=== PATIENT | female | born 1960 | race Caucasian/White ===

== ENCOUNTER 2016-09-27 07:15 | Day surgery (SDC) | payer OTHER ==
[~2016-09-27] VITALS: Ht 162.6 cm; Wt 94.8 kg
[~2016-09-27 07:15] MED LIST: ASPI81EC98 PO; BENA10TA16 PO; GABA300C PO; GLIP10TE PO; METF850T PO; MSCON15 PO; [UNRECOGNIZED DRUG - REMARK] PO
[2016-09-27 09:12] LABS: BASOPHILS # (AUTO) 0.1 K/uL (0.00-0.22); BASOPHILS % (AUTO) 2.1 % (0.0-2.0); EOSINOPHILS # (AUTO) 0.1 K/uL (0-0.4); EOSINOPHILS % (AUTO) 1.4 % (0.0-4.0); HEMATOCRIT 43.7 % (36-48); HEMOGLOBIN 14.6 g/dL (12.0-16.0); LYMPHOCYTES # (AUTO) 1.5 K/uL (2.5-16.5); LYMPHOCYTES % (AUTO) 36.2 % (20.5-51.1); MEAN CORPUSCULAR HEMOGLOBIN 31 pg (27-31); MEAN CORPUSCULAR HGB CONC 33 g/dL (33-37); MEAN CORPUSCULAR VOLUME 93 fL (80-94); MONOCYTES # (AUTO) 0.3 K/uL (0.8-1.0); MONOCYTES % (AUTO) 7.7 % (1.7-9.3); NEUTROPHILS % (AUTO) 52.6 % (42.2-75.2); PLATELET COUNT (AUTO) 118 K/uL (140-450); RED BLOOD CELL COUNT(AUTO) 4.72 MIL/uL (4.20-5.40); RED CELL DISTRIBUTION WIDTH 11.7 % (11.6-13.7)
[2016-09-27] MEDS ORDERED: LIDOCAINE 2% 1000 MG/50 ML VIAL INJ ONE (09:19)
[2016-09-27 09:27] LABS: INR 1.1 (0.8-1.2); PROTHROMBIN TIME 10.8 secs (10.8-13.4)
[2016-09-27] MEDS ORDERED: fentaNYL 0.05 MG/ML VIAL ONE ×2 (09:45→10:28)
== END 2016-09-27 11:00 | disposition home health service (06) ==
LOC: MMU 07:15 → MDS 07:15
PROVIDERS: ATTEND Internal Medicine Gastroenterology
DX: B19.20 Unspecified viral hepatitis C without hepatic coma (principal); I10 Essential (primary) hypertension; Z79.82 Long term (current) use of aspirin; E11.9 Type 2 diabetes mellitus without complications; E66.9 Obesity, unspecified
CPT/HCPCS: 36415; 76942; 82948; 85025; 85610; 85730; J2001; J3010; Q0092

== ENCOUNTER 2016-09-30 22:30 | Emergency (ER) | payer OTHER ==
[~2016-09-30] VITALS: Ht 160 cm; Wt 94.8 kg
[2016-09-30 22:45] VITALS: BP 122/67
--- NOTE | 2016-10-01 00:43 | NUR ---
PATIENT LEFT WITHOUT BEING SEEN BY DR. LOPEZ. NO FURTHER CARE PROVIDED FOR PATIENT.
== END 2016-10-01 00:43 | disposition left against medical advice (07) ==
LOC: MED 22:30
DX: R10.9 Unspecified abdominal pain (principal); Z53.21 Procedure and treatment not carried out due to patient leaving prior to being seen by health care provider

== ENCOUNTER 2017-03-21 11:22 | Emergency (ER) | payer OTHER ==
[~2017-03-21] VITALS: Ht 160 cm; Wt 96.3 kg
[~2017-03-21 11:22] MED LIST changes: +BENA10TA10 PO; -BENA10TA16 PO
[2017-03-21 11:28] VITALS: BP 113/68
--- NOTE | 2017-03-21 14:00 | NUR ---
NO ANSWER IN ER LOBBY
== END 2017-03-21 14:00 | disposition left against medical advice (07) ==
LOC: MED 11:22
DX: H92.02 Otalgia, left ear (principal); Z53.21 Procedure and treatment not carried out due to patient leaving prior to being seen by health care provider
CPT/HCPCS: 82948

== ENCOUNTER 2017-07-24 13:54 | Emergency (ER) | payer OTHER ==
[~2017-07-24] VITALS: Ht 160 cm; Wt 92.6 kg
[2017-07-24 13:59] VITALS: BP 132/73
--- NOTE | 2017-07-24 14:05 | NUR ---
PT AA&OX4 WITH EVEN AND STEADY GAIT AT THIS TIME; PT TO LOBBY AWAITING OPEN BED.
--- NOTE | 2017-07-24 14:33 | NUR ---
PT AMBULATED TO ER CHAIR B
--- NOTE | 2017-07-24 14:35 | NUR ---
56F BIB SELF C/O NECK PAIN D/T BL SWOLLEN GLANDS X 1 WEEK. PT STATES HAS RASH TO BL HIPS AND LUMP ON BACK. HX: DM, HTN,HEP C.DENIES N/V/D; SKIN IS PINK/WARM/DRY; AAOX4 WITH EVEN AND STEADY GAIT; LUNGS CLEAR BL;PATIENT STATES PAIN OF 9/10 AT THIS TIME; PATIENT POSITIONED FOR COMFORT; HOB ELEVATED; BEDRAILS UP X2; BED DOWN. ER MD MADE AWARE OF PT STATUS.
--- NOTE | 2017-07-24 15:20 | NUR ---
Michael arthur in ED - 07/24/17 at 1522 by MED1 PATIENT ELOPED FROM FACILITY. DISCHARGE INSTRUCTIONS NOT GIVEN TO PATIENT. DR. GODWINIED.
--- NOTE | 2017-07-24 16:40 | NUR ---
Patient being evaluated by DR ASTUDILLO at bedside.
[2017-07-24 17:03] VITALS: BP 135/76
--- NOTE | 2017-07-24 17:04 | NUR ---
Patient discharged with BP 135/70. Written and verbal after care instructions given and explained. Patient alert, oriented and verbalized understanding of instructions. Ambulatory with steady gait. All questions addressed prior to discharge. ID band removed. Patient advised to follow up with PMD. Rx of NAPROSYN & DOXYCYCLINE given. Patient educated on indication of medication including possible reaction and side effects. Opportunity to ask questions provided and answered.
== END 2017-07-24 17:04 | disposition home or self-care (01) ==
LOC: MED 13:54
DX: I88.9 Nonspecific lymphadenitis, unspecified (principal); D17.9 Benign lipomatous neoplasm, unspecified; J32.9 Chronic sinusitis, unspecified; L30.9 Dermatitis, unspecified; E11.9 Type 2 diabetes mellitus without complications
CPT/HCPCS: 82948; 99283

== ENCOUNTER 2018-10-07 20:55 | Emergency (ER) | payer OTHER ==
[~2018-10-07] VITALS: Ht 160 cm; Wt 97.5 kg
[~2018-10-07 20:55] MED LIST changes: -BENA10TA10 PO; +BENA10TA17 PO
[2018-10-07 21:12] VITALS: BP_SYST 90
--- NOTE | 2018-10-07 21:15 | NUR ---
TO LOBBY A/W BED, AMBULATORY
--- NOTE | 2018-10-07 22:50 | NUR ---
PT AMBULATED TO BED 10
--- NOTE | 2018-10-07 22:51 | NUR ---
57 Y/O F W/C/O RASH ON CHEST, BACK, UPPER AND LOWER EXTREMITIES. PT DENIES N/V/D; AAOX4, PERRL, WITH EVEN AND STEADY GAIT; LUNGS CLEAR BL, BREATHING UNLABORED; HR EVEN AND REGULAR, BL PERIPHERAL PULSES PRESENT; PT DENIES ANY FEVER, CP, SOB, OR COUGH AT THIS TIME; PT STATES 8/10 PAIN AT THIS TIME; VSS; PATIENT POSITIONED FOR COMFORT; HOB ELEVATED; BEDRAILS UP X2; BED DOWN.
--- NOTE | 2018-10-07 23:41 | NUR ---
Dr. Varela evaluating patient at bedside.
[2018-10-07] MEDS ORDERED: LEVOFLOXACIN 500 MG TAB PO ONE (23:45)
[2018-10-08 00:23] VITALS: BP 118/95
--- NOTE | 2018-10-08 01:05 | NUR ---
Patient discharged with v/s stable. Written and verbal after care instructions given and explained. Patient alert, oriented and verbalized understanding of instructions. Ambulatory with steady gait. All questions addressed prior to discharge. ID band removed. Patient advised to follow up with PMD. Rx of BENADRYL,CIPRO, HYDROCORTISONE CREAM given. Patient educated on indication of medication including possible reaction and side effects. Opportunity to ask questions provided and answered.
== END 2018-10-08 00:23 | disposition home or self-care (01) ==
LOC: MED 20:55
DX: N39.0 Urinary tract infection, site not specified (principal); L98.9 Disorder of the skin and subcutaneous tissue, unspecified; R21 Rash and other nonspecific skin eruption; E11.9 Type 2 diabetes mellitus without complications; I10 Essential (primary) hypertension; F17.210 Nicotine dependence, cigarettes, uncomplicated; Z79.82 Long term (current) use of aspirin; Z79.84 Long term (current) use of oral hypoglycemic drugs; Z79.899 Other long term (current) drug therapy; Z79.891 Long term (current) use of opiate analgesic; Z71.6 Tobacco abuse counseling
CPT/HCPCS: 99283

== ENCOUNTER 2019-05-26 22:06 | Emergency (ER) | payer OTHER ==
[~2019-05-26] VITALS: Ht 160 cm; Wt 98.0 kg
[2019-05-26 22:10] VITALS: BP 143/54
--- NOTE | 2019-05-26 22:22 | NUR ---
AMBULATED TO BED 06 WITH STEADY GAIT IN UPRIGHT POSITION. 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 JANUSZ ROQUE AT BEDSIDE FOR REPORT. MADE DR. PEREZ OF STATUS. RECEIVED VERBAL ORDER FOR EKG.
--- NOTE | 2019-05-26 22:22 | NUR ---
58 Y/O FEMALE C/O RAPID HEART RATE AND CEHST PAIN X 1HR. RATES PAIN 8/10 AND DESCRIBES IT BURNING AND ACHING. CHEST PAIN RADIATES TO LEFT SHOULDER AND ARM. HEART SOUNDS S1S2 PRESENT. LUNG SOUNDS CLEAR ALL THROUGHOUT. VSS. a & O X4. NO EDEMA PRESENT. CAP REFILL < 3. 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
[2019-05-26] MEDS ORDERED: KETOROLAC 60 MG/2 ML VIAL IM ONE (22:30)
--- NOTE | 2019-05-26 22:30 | NUR ---
EKG PERFORMED AT BEDSIDE
--- NOTE | 2019-05-26 22:57 | NUR ---
AT BEDSIDE TO ISMAEL HERNANDEZ
[2019-05-26 23:06] VITALS: BP 143/54
--- NOTE | 2019-05-26 23:07 | NUR ---
Patient discharged with v/s stable. Written and verbal after care instructions given and explained. Patient verbalized understanding. Ambulatory with steady gait. All questions addressed prior to discharge. Advised to follow up with PMD.
== END 2019-05-26 23:07 | disposition home or self-care (01) ==
LOC: MED 22:06
DX: R00.2 Palpitations (principal); E11.9 Type 2 diabetes mellitus without complications; I10 Essential (primary) hypertension; F17.210 Nicotine dependence, cigarettes, uncomplicated; Z79.899 Other long term (current) drug therapy; Z79.82 Long term (current) use of aspirin; Z79.84 Long term (current) use of oral hypoglycemic drugs
CPT/HCPCS: 93005; 96372; 99283; J1885

== ENCOUNTER 2020-01-19 13:48 | Emergency (ER) | payer OTHER ==
[~2020-01-19] VITALS: Ht 160 cm; Wt 96.6 kg
[~2020-01-19 13:48] MED LIST changes: -BENA10TA17 PO; +BENA10TA60 PO
[2020-01-19 14:00] VITALS: BP 111/71
--- NOTE | 2020-01-19 14:06 | NUR ---
59 Y/O FEMALE C/O LEFT ZIEGLER PAIN X1 WEEK. INFLAMED VERICOSE VEINS NOTED ON LEFT ZIEGLER. PT STATES SHE HAS HX OF SUPERFICIAL BLOOD CLOTS ON LEFT ZIEGLER. SKIN INTACT. ROM+, CMS+. PT AMBULATORY WITH STEADY GAIT. PT STATES SHE IS TAKING NORCO, GABAPENTIN FOR PAIN, BUT PAIN LEVEL STILL GETS TO 9/10. PMH: DM, HTN
--- NOTE | 2020-01-19 14:30 | NUR ---
ULTRASOUND AT BEDSIDE
[2020-01-19 15:27] VITALS: BP 111/71
== END 2020-01-19 15:28 | disposition home or self-care (01) ==
LOC: MED 13:48
DX: I83.812 Varicose veins of left lower extremity with pain (principal); E11.9 Type 2 diabetes mellitus without complications; I10 Essential (primary) hypertension; Z79.84 Long term (current) use of oral hypoglycemic drugs; Z79.82 Long term (current) use of aspirin; Z79.899 Other long term (current) drug therapy
CPT/HCPCS: 93971; 99284; Q0092

== ENCOUNTER 2021-05-17 12:15 | Emergency (ER) | payer OTHER ==
[~2021-05-17] VITALS: Ht 160 cm; Wt 93.4 kg
[2021-05-17 12:19] VITALS: BP 154/80
--- NOTE | 2021-05-17 12:55 | NUR ---
C/O GENERALIZED WEAKNESS, 8/10 HEADACHE, LOWER ABDOMINAL PAIN , URINARY FREQUENCY X 3 WEEKS. BLOOD SUGAR 173 AT THIS TIME. PMH: HTN, DM, HLD
--- NOTE | 2021-05-17 13:21 | NUR ---
PT AMBULATED TO ER BED 2 WITH A STEADY GAIT.
[2021-05-17 13:22] LABS: BASOPHILS % (AUTO) 0.4 % (0.0-2.0); EOSINOPHILS # (AUTO) 0.1 K/uL (0-0.4); EOSINOPHILS % (AUTO) 0.8 % (0.0-4.0); HEMATOCRIT 43.7 % (36-48); HEMOGLOBIN 15.1 g/dL (12.0-16.0); LYMPHOCYTES # (AUTO) 2.5 K/uL (2.5-16.5); LYMPHOCYTES % (AUTO) 30.8 % (20.5-51.1); MEAN CORPUSCULAR HEMOGLOBIN 31 pg (27-31); MEAN CORPUSCULAR HGB CONC 35 g/dL (33-37); MEAN CORPUSCULAR VOLUME 89.9 fL (80-94); MONOCYTES # (AUTO) 0.5 K/uL (0.8-1.0); MONOCYTES % (AUTO) 6.1 % (1.7-9.3); NEUTROPHILS % (AUTO) 61.9 % (42.2-75.2); PLATELET COUNT (AUTO) 201 K/uL (140-450); RED BLOOD CELL COUNT(AUTO) 4.86 MIL/uL (4.20-5.40); RED CELL DISTRIBUTION WIDTH 12.5 % (11.6-13.7); WHITE BLOOD COUNT (AUTO) 8.2 K/uL (4.8-10.8)
[2021-05-17 13:36] LABS: ANION GAP 13.5 (8-16); CARBON DIOXIDE 30.8 mmol/L (21-32); CREATININE 0.8 mg/dL (0.6-1.3); POTASSIUM 4.3 mmol/L (3.5-5.1)
[2021-05-17 13:37] LABS: APPEARANCE,URINE CLEAR (CLEAR); BILIRUBIN,URINE NEGATIVE (NEGATIVE); BLOOD, URINE NEGATIVE (NEGATIVE); COLOR,URINE YELLOW (YELLOW); LEUKOCYTE ESTERASE ,URINE NEGATIVE (NEGATIVE); NITRITE, URINE NEGATIVE (NEGATIVE); PH,URINE 7.5 (5.0-9.0); UGLUCOSE NEGATIVE (NEGATIVE)
--- NOTE | 2021-05-17 13:41 | NUR ---
60 Y FEMALE FROM HOME WITH C/O GENERAL WEAKNESS, HEADACHE, BLURRED VISION, POLYDIPSIA, POLYURIA, AND OVERALL FATIGUE. PT DENEIS ANY CHEST PAIN, SOB, N/V, FEVER/CHILLS AT THIS TIME. PT STATED SHE HAS HAD THESE SYMPTOMS X6 WEEKS NOW. PT STATED HER BLOOD SUGAR HAS BEEN IN THE 200'S RECENTLY AND ADMITS TO TAKING 5 METFORMIN LAST NIGHT. CURRENT BLOOD SUGAR 173 AT THIS TIME. PMH: HTN, DM, HLD NKA
[2021-05-17] MEDS ORDERED: METF-350 PO (14:11)
[2021-05-17] MEDS ORDERED: PYR100 PO (14:11)
--- NOTE | 2021-05-17 14:18 | NUR ---
Patient discharged with v/s stable. Written and verbal after care instructions given and explained. Patient alert, oriented and verbalized understanding of instructions. Ambulatory with steady gait. All questions addressed prior to discharge. ID band removed. Patient advised to follow up with PMD. Rx of METFORMIN AND PYRIDIUM given. Patient educated on indication of medication including possible reaction and side effects. Opportunity to ask questions provided and answered.
[2021-05-17 14:19] VITALS: BP 111/66
== END 2021-05-17 14:18 | disposition home or self-care (01) ==
LOC: MED 12:15
DX: E11.65 Type 2 diabetes mellitus with hyperglycemia (principal); R42 Dizziness and giddiness; R51.9 Headache, unspecified; I10 Essential (primary) hypertension; E78.5 Hyperlipidemia, unspecified; F17.200 Nicotine dependence, unspecified, uncomplicated; Z79.84 Long term (current) use of oral hypoglycemic drugs; Z79.899 Other long term (current) drug therapy; Z79.82 Long term (current) use of aspirin
CPT/HCPCS: 36415; 80048; 81003; 85025; 99283

== ENCOUNTER 2021-07-23 11:28 | Emergency (ER) | payer OTHER ==
[~2021-07-23] VITALS: Ht 160 cm; Wt 91.2 kg
[~2021-07-23 11:28] MED LIST changes: +METF-350 PO; -METF850T PO; +PYR100 PO
[2021-07-23 11:36] VITALS: BP 137/87
--- NOTE | 2021-07-23 11:38 | NUR ---
Patient ambulated to bed 12 with steady/even gait
--- NOTE | 2021-07-23 11:44 | NUR ---
60 Y/O F C/O LT EYE PAIN SINCE FRIDAY. PT REPORTED PUTTING ON FALSE EYELASHES WITH "OLD GLUE" PT STATES SHE ATTEMPTED TO TAKE LASHES OFF AND NOW IS REPORTING PAIN 7/10 AND SWELLING, REDNESS NOTED. STATES BLURRY VISION. RT/LT EYES 20/25 MEDHX: HLD, HTN, DM NKA
[2021-07-23] MEDS ORDERED: KETOROLAC 60 MG/2 ML VIAL IM ONE (11:55)
[2021-07-23] MEDS ORDERED: CEPH-588 PO (11:59)
== END 2021-07-23 12:08 | disposition home or self-care (01) ==
LOC: MED 11:28
DX: L03.213 Periorbital cellulitis (principal); E11.9 Type 2 diabetes mellitus without complications; I10 Essential (primary) hypertension; Z79.899 Other long term (current) drug therapy; Z79.82 Long term (current) use of aspirin; Z79.84 Long term (current) use of oral hypoglycemic drugs; Z98.890 Other specified postprocedural states
CPT/HCPCS: 96372; 99283; J1885

== ENCOUNTER 2021-10-02 18:40 | Emergency (ER) | payer OTHER ==
[~2021-10-02] VITALS: Ht 162.6 cm; Wt 89.8 kg
[~2021-10-02 18:40] MED LIST changes: +CEPH-588 PO
[2021-10-02 18:57] VITALS: BP 134/74
== END 2021-10-02 21:52 | disposition left against medical advice (07) ==
LOC: MED 18:40
DX: R51.9 Headache, unspecified (principal); Z53.21 Procedure and treatment not carried out due to patient leaving prior to being seen by health care provider; I10 Essential (primary) hypertension; E11.9 Type 2 diabetes mellitus without complications

== ENCOUNTER 2021-10-04 11:17 | Emergency (ER) | payer OTHER ==
[~2021-10-04] VITALS: Ht 167.6 cm; Wt 91.3 kg
[2021-10-04 11:30] VITALS: BP 126/62
--- NOTE | 2021-10-04 11:42 | NUR ---
60 Y/O F BIB SELF C/O FOR R HAND POINTING FINGER PAIN 8/10 FOR ONE MONTH. PER PT SHE HAD PUSS AND BLOOD COMING OUT OF WHEN SHE SQUIZZED HER FINGER. BLOOD SUGAR IS 127 AT THIS TIME. NKA PMH: DM,HTN, FATTY LIVER
--- NOTE | 2021-10-04 12:04 | NUR ---
MARCELLE CARMONA AT BEDSIDE.
[2021-10-04] MEDS ORDERED: BACITRACIN OINT 500 UNITS/GM PKT TP ONE (12:15)
[2021-10-04] MEDS ORDERED: KETOROLAC 30 MG/ML VIAL IM ONE (12:15)
[2021-10-04] MEDS ORDERED: BACI-352 TP (12:30)
[2021-10-04 12:54] VITALS: BP 148/74
--- NOTE | 2021-10-04 12:55 | NUR ---
Patient discharged with v/s stable. Written and verbal after care instructions given and explained. Patient alert, oriented and verbalized understanding of instructions. Ambulatory with steady gait. All questions addressed prior to discharge. ID band removed. Patient advised to follow up with PMD. Rx of NEOMYCIN JOHNS/BACITRAC ZN/POLY given. Opportunity to ask questions provided and answered.
== END 2021-10-04 12:54 | disposition home or self-care (01) ==
LOC: MED 11:17
DX: L03.011 Cellulitis of right finger (principal); E11.9 Type 2 diabetes mellitus without complications; I10 Essential (primary) hypertension; Z79.899 Other long term (current) drug therapy; Z79.82 Long term (current) use of aspirin; Z79.84 Long term (current) use of oral hypoglycemic drugs
CPT/HCPCS: 82948; 96372; 99283; J1885

== ENCOUNTER 2022-03-18 16:25 | Emergency (ER) | payer OTHER ==
[~2022-03-18] VITALS: Ht 160 cm; Wt 87.5 kg
[~2022-03-18 16:25] MED LIST changes: +BACI-352 TP; -[UNRECOGNIZED DRUG - REMARK] PO
[2022-03-18 16:54] VITALS: BP 161/71
[2022-03-18] MEDS ORDERED: DOXY-690 PO (21:01)
[2022-03-18] MEDS ORDERED: ONDA-188 SL (21:01)
[2022-03-18] MEDS ORDERED: CEPH-588 PO (21:01)
[2022-03-18 21:20] VITALS: BP 161/71
--- NOTE | 2022-03-18 21:20 | NUR ---
Patient discharged with v/s stable. Written and verbal after care instructions given and explained. Patient alert, oriented and verbalized understanding of instructions. Ambulatory with steady gait. All questions addressed prior to discharge. ID band removed. Patient advised to follow up with PMD. Rx of KEFLEX, VIBRAMYCIN, ZOFRAN given. Patient educated on indication of medication including possible reaction and side effects. Opportunity to ask questions provided and answered.
== END 2022-03-18 21:20 | disposition home or self-care (01) ==
LOC: MED 16:25
DX: L03.116 Cellulitis of left lower limb (principal); R19.7 Diarrhea, unspecified; V49.88XA Car occupant (driver) (passenger) injured in other specified transport accidents, initial encounter; Y93.89 Activity, other specified; Y92.89 Other specified places as the place of occurrence of the external cause; Y99.8 Other external cause status
CPT/HCPCS: 99283

== ENCOUNTER 2022-08-02 17:20 | Emergency (ER) | payer OTHER ==
[~2022-08-02] VITALS: Ht 160 cm; Wt 83.5 kg
[~2022-08-02 17:20] MED LIST changes: +DOXY-690 PO; +ONDA-188 SL
[2022-08-02 17:38] VITALS: BP 131/68
== END 2022-08-02 19:35 | disposition left against medical advice (07) ==
LOC: MED 17:20
DX: R11.0 Nausea (principal); Z53.21 Procedure and treatment not carried out due to patient leaving prior to being seen by health care provider

== ENCOUNTER 2022-10-01 13:35 | Emergency (ER) | payer OTHER ==
[~2022-10-01] VITALS: Ht 160 cm; Wt 86.2 kg
[2022-10-01 13:56] VITALS: BP 121/70
[2022-10-01 15:24] LABS: APPEARANCE,URINE CLEAR (CLEAR); BILIRUBIN,URINE NEGATIVE (NEGATIVE); BLOOD, URINE NEGATIVE (NEGATIVE); COLOR,URINE YELLOW (YELLOW); LEUKOCYTE ESTERASE ,URINE NEGATIVE (NEGATIVE); NITRITE, URINE NEGATIVE (NEGATIVE); UGLUCOSE NEGATIVE (NEGATIVE)
--- NOTE | 2022-10-01 16:42 | NUR ---
Patient discharged with v/s stable. Written and verbal after care instructions given and explained. Patient alert, oriented and verbalized understanding of instructions. Ambulatory with steady gait. All questions addressed prior to discharge. ID band removed. Patient advised to follow up with PMD. Patient educated on indication of medication including possible reaction and side effects. Opportunity to ask questions provided and answered.
== END 2022-10-01 16:42 | disposition home or self-care (01) ==
LOC: MED 13:35
DX: R60.0 Localized edema (principal); I10 Essential (primary) hypertension; E11.9 Type 2 diabetes mellitus without complications; Z79.4 Long term (current) use of insulin; Z79.899 Other long term (current) drug therapy
CPT/HCPCS: 81003; 93971; 99284; Q0092

== ENCOUNTER 2023-03-13 18:18 | Emergency (ER) | payer OTHER ==
[~2023-03-13] VITALS: Ht 160 cm; Wt 81.6 kg
[2023-03-13 18:31] VITALS: BP 145/74; PULSE 71; RESP 14; TEMP 98; O2SAT 96
[2023-03-13 18:53] VITALS: TEMP 98
[2023-03-13] MEDS ORDERED: NACL 0.9% 500 ML IV ONE ×2 (19:30→20:05)
[2023-03-13] MEDS ORDERED: ACETAMINOPHEN EXTRA STRENGTH 500 MG TAB PO ONE (19:30)
[2023-03-13] MEDS ORDERED: diphenhydrAMINE 50 MG/ML VIAL IVP ONE (19:30)
[2023-03-13] MEDS ORDERED: METOCLOPRAMIDE 10 MG/2 ML INJ VIAL IVP ONE (19:30)
[2023-03-13 20:49] LABS: BASOPHILS % (AUTO) 0.4 % (0.0-2.0); EOSINOPHILS % (AUTO) 0.5 % (0.0-4.0); HEMOGLOBIN 13.7 g/dL (12.0-16.0); LYMPHOCYTES # (AUTO) 1.4 K/uL (2.5-16.5); LYMPHOCYTES % (AUTO) 38.2 % (20.5-51.1); MEAN CORPUSCULAR HEMOGLOBIN 32 pg (27-31); MEAN CORPUSCULAR HGB CONC 35 g/dL (33-37); MEAN CORPUSCULAR VOLUME 91.3 fL (80-94); MONOCYTES # (AUTO) 0.7 K/uL (0.8-1.0); MONOCYTES % (AUTO) 19.1 % (1.7-9.3); NEUTROPHILS # (AUTO) 1.5 K/uL (1.8-7.7); NEUTROPHILS % (AUTO) 41.8 % (42.2-75.2); PLATELET COUNT (AUTO) 128 K/uL (140-450); RED BLOOD CELL COUNT(AUTO) 4.27 MIL/uL (4.20-5.40); RED CELL DISTRIBUTION WIDTH 12.7 % (11.6-13.7); WHITE BLOOD COUNT (AUTO) 3.6 K/uL (4.8-10.8)
[2023-03-13] MEDS ORDERED: KETOROLAC 30 MG/ML VIAL IVP ONE (20:50)
[2023-03-13 21:13] LABS: ALBUMIN 3.6 g/dL (3.4-5.0); ANION GAP 12.8 (8-16); CARBON DIOXIDE 25.3 mmol/L (21-32); CREATININE 0.6 mg/dL (0.6-1.3); POTASSIUM 3.1 mmol/L (3.5-5.1); TOTAL BILIRUBIN 0.2 mg/dL (0.0-1.0); TOTAL PROTEIN, SERUM 6.2 g/dL (6.4-8.2)
[2023-03-13 21:18] LABS: BILIRUBIN,URINE NEGATIVE (NEGATIVE); BLOOD, URINE TRACE-I (NEGATIVE); LEUKOCYTE ESTERASE ,URINE TRACE (NEGATIVE); NITRITE, URINE POSITIVE (NEGATIVE); PH,URINE 5.5 (5.0-9.0); PROTEIN,URINE NEGATIVE (NEGATIVE); UGLUCOSE NEGATIVE (NEGATIVE); UROBILINOGEN,URINE 0.2 EU/dL (0.2 - 1)
[2023-03-13] MEDS ORDERED: POTASSIUM CHLORIDE 10 MEQ TABER PO ONE (22:00)
[2023-03-13 22:03] LABS: APPEARANCE,URINE HAZY (CLEAR); COLOR,URINE STRAW (YELLOW)
[2023-03-13 22:04] LABS: BACTERIA,URINE 2+ /HPF (None Seen); RBC,URINE 0-5 /HPF (0-5); SQUAMOUS EPITHELIAL CELL,UR 0-3 (FEW) /LPF (0-3 (FEW)); WBC,URINE 0-5 /HPF (0-5)
[2023-03-13] MEDS ORDERED: CEPH-588 PO (22:17)
[2023-03-13] MEDS ORDERED: ceFAZolin 1,000 MG VIAL ONE (22:27)
[2023-03-13] MEDS ORDERED: cefTRIAXone 1,000 MG VIAL ONE (22:28)
[2023-03-13 23:15] VITALS: BP 136/56; PULSE 62; RESP 18; O2SAT 94
== END 2023-03-13 23:15 | disposition home or self-care (01) ==
LOC: MED 18:18
DX: N39.0 Urinary tract infection, site not specified (principal); E86.0 Dehydration; E87.6 Hypokalemia; E11.9 Type 2 diabetes mellitus without complications; I10 Essential (primary) hypertension; Z79.899 Other long term (current) drug therapy; Z79.84 Long term (current) use of oral hypoglycemic drugs; Z20.822 Contact with and (suspected) exposure to COVID-19
CPT/HCPCS: 36415; 80053; 81001; 82948; 85025; 87086; 87426; 96361; 96365; 96375; 99285; J0696; J1200; J1885; J2765; J7030; J0690

== ENCOUNTER 2023-03-25 14:33 | Emergency (ER) | payer OTHER ==
[~2023-03-25] VITALS: Ht 160 cm; Wt 83.0 kg
[2023-03-25 15:30] VITALS: BP 105/60; PULSE 60; RESP 20; TEMP 98; O2SAT 98
[2023-03-25 19:03] VITALS: BP 144/65; RESP 17; TEMP 97.1
[2023-03-25 20:15] VITALS: PULSE 88
[2023-03-25 20:20] VITALS: O2SAT 98
[2023-03-25 20:42] LABS: BASOPHILS % (AUTO) 0.4 % (0.0-2.0); EOSINOPHILS # (AUTO) 0.1 K/uL (0-0.4); EOSINOPHILS % (AUTO) 1.7 % (0.0-4.0); HEMATOCRIT 39.7 % (36-48); HEMOGLOBIN 13.7 g/dL (12.0-16.0); LYMPHOCYTES # (AUTO) 2.3 K/uL (2.5-16.5); LYMPHOCYTES % (AUTO) 36.6 % (20.5-51.1); MEAN CORPUSCULAR HEMOGLOBIN 32 pg (27-31); MEAN CORPUSCULAR HGB CONC 34 g/dL (33-37); MEAN CORPUSCULAR VOLUME 93.2 fL (80-94); MONOCYTES # (AUTO) 0.5 K/uL (0.8-1.0); MONOCYTES % (AUTO) 7.7 % (1.7-9.3); NEUTROPHILS # (AUTO) 3.4 K/uL (1.8-7.7); NEUTROPHILS % (AUTO) 53.6 % (42.2-75.2); PLATELET COUNT (AUTO) 210 K/uL (140-450); RED BLOOD CELL COUNT(AUTO) 4.26 MIL/uL (4.20-5.40); WHITE BLOOD COUNT (AUTO) 6.3 K/uL (4.8-10.8)
[2023-03-25] MEDS: KETOROLAC 30 MG/ML VIAL IVP ONE ×2 (20:53→21:56)
[2023-03-25 20:56] LABS: APPEARANCE,URINE CLEAR (CLEAR); BILIRUBIN,URINE NEGATIVE (NEGATIVE); BLOOD, URINE NEGATIVE (NEGATIVE); COLOR,URINE YELLOW (YELLOW); LEUKOCYTE ESTERASE ,URINE NEGATIVE (NEGATIVE); NITRITE, URINE NEGATIVE (NEGATIVE); PROTEIN,URINE NEGATIVE (NEGATIVE); UGLUCOSE NEGATIVE (NEGATIVE); UROBILINOGEN,URINE 0.2 EU/dL (0.2 - 1)
[2023-03-25] MEDS: NACL 0.9% 1,000 ML IV ONE ×2 (20:58→21:56)
[2023-03-25 21:05] LABS: ALANINE AMINOTRANSFERASE 36 U/L (12-78); ALBUMIN 4.3 g/dL (3.4-5.0); ALKALINE PHOSPHATASE 54 U/L (50-136); ANION GAP 7.2 (8-16); ASPARTATE AMINOTRANSFERASE 20 U/L (15-37); CALCIUM 9.3 mg/dL (8.5-10.1); CARBON DIOXIDE 34.2 mmol/L (21-32); CHLORIDE 104 mmol/L (98-107); CREATININE 0.7 mg/dL (0.6-1.3); GFR ARICAN-AMERICAN 110 mL/min (>90); GFR NON ARICAN-AMERICAN 91 mL/min (>90); GLUCOSE 150 mg/dL (74-106); POTASSIUM 4.4 mmol/L (3.5-5.1); SODIUM SERUM 141 mmol/L (136-145); TOTAL BILIRUBIN 0.3 mg/dL (0.0-1.0); TOTAL PROTEIN, SERUM 7.1 g/dL (6.4-8.2); UREA NITROGEN, BLOOD 13 mg/dL (7-18)
[2023-03-25 21:26] LABS: FLU A ANTIGEN negative (NEGATIVE); FLU B ANTIGEN NEGATIVE (NEGATIVE)
[2023-03-25] MEDS ORDERED: METO-485 PO (21:42)
[2023-03-25] MEDS ORDERED: ACET-10509 PO (21:42)
== END 2023-03-25 22:06 | disposition home or self-care (01) ==
LOC: MED 14:33
DX: B34.9 Viral infection, unspecified (principal); Z20.822 Contact with and (suspected) exposure to COVID-19; R53.83 Other fatigue
CPT/HCPCS: 36415; 71045; 80053; 81003; 83880; 84484; 85025; 87426; 87804; 93005; 96361; 96374; 99285; J1885; J7030; Q0092

== ENCOUNTER 2023-10-28 16:52 | Emergency (ER) | payer OTHER ==
[~2023-10-28] VITALS: Ht 160 cm; Wt 87.1 kg
[~2023-10-28 16:52] MED LIST changes: +ACET-10509 PO; +METO-485 PO
[2023-10-28 17:12] VITALS: BP 106/60; PULSE 69; RESP 18; TEMP 97.1; O2SAT 99
[2023-10-28] MEDS: KETOROLAC 30 MG/ML VIAL IM ONE (18:54)
[2023-10-28] MEDS ORDERED: LID5T TP (18:59)
[2023-10-28] MEDS ORDERED: CYCL-711 PO (18:59)
[2023-10-28] MEDS ORDERED: NAPR-337 PO (18:59)
[2023-10-28] MEDS ORDERED: DICL20GE TP (18:59)
[2023-10-28 19:10] VITALS: BP 110/62; PULSE 74; RESP 18; TEMP 97.3; O2SAT 99
== END 2023-10-28 19:10 | disposition home or self-care (01) ==
LOC: MED 16:52
DX: M54.50 Low back pain, unspecified (principal); M54.2 Cervicalgia; E11.9 Type 2 diabetes mellitus without complications; I10 Essential (primary) hypertension; Z79.4 Long term (current) use of insulin; Z79.899 Other long term (current) drug therapy; V49.88XA Car occupant (driver) (passenger) injured in other specified transport accidents, initial encounter; Y93.89 Activity, other specified; Y92.89 Other specified places as the place of occurrence of the external cause; Y99.8 Other external cause status
CPT/HCPCS: 96372; 99283; J1885

== ENCOUNTER 2023-10-30 13:57 | Emergency (ER) | payer OTHER ==
[~2023-10-30] VITALS: Ht 160 cm; Wt 87.1 kg
[~2023-10-30 13:57] MED LIST changes: +CYCL-711 PO; +DICL20GE TP; +LID5T TP; +NAPR-337 PO
[2023-10-30 14:24] VITALS: BP 128/54; PULSE 68; RESP 18; TEMP 96.9; O2SAT 98
[2023-10-30] MEDS: ONDANSETRON 4 MG ODT PO ONE (15:20)
[2023-10-30] MEDS ORDERED: ONDA-188 PO (16:46)
[2023-10-30 16:54] VITALS: BP 122/62; PULSE 88; RESP 16; TEMP 98; O2SAT 99
== END 2023-10-30 16:54 | disposition home or self-care (01) ==
LOC: MED 13:57
DX: R51.9 Headache, unspecified (principal); E11.9 Type 2 diabetes mellitus without complications; I10 Essential (primary) hypertension; Z79.84 Long term (current) use of oral hypoglycemic drugs; Z79.82 Long term (current) use of aspirin; Z79.1 Long term (current) use of non-steroidal anti-inflammatories (NSAID); Z79.899 Other long term (current) drug therapy; V49.9XXA Car occupant (driver) (passenger) injured in unspecified traffic accident, initial encounter; Y93.89 Activity, other specified; Y92.411 Interstate highway as the place of occurrence of the external cause; Y99.8 Other external cause status
CPT/HCPCS: 70450; 99284; Q0162

== ENCOUNTER 2024-03-12 20:19 | Emergency (ER) | payer OTHER ==
[~2024-03-12] VITALS: Ht 160 cm; Wt 87.1 kg
[~2024-03-12 20:19] MED LIST changes: -ACET-10509 PO; +ACET500T99 PO; -GLIP10TE PO; +GLIP10TE1 PO; +ONDA-188 PO
[2024-03-12 20:34] VITALS: BP 152/76; PULSE 66; RESP 19; TEMP 98; O2SAT 98
[2024-03-12 21:13] LABS: BILIRUBIN,URINE NEGATIVE (NEGATIVE); BLOOD, URINE 3+ (NEGATIVE); COLOR,URINE YELLOW (YELLOW); LEUKOCYTE ESTERASE ,URINE TRACE (NEGATIVE); NITRITE, URINE POSITIVE (NEGATIVE); PH,URINE 6.5 (5.0-9.0); PROTEIN,URINE NEGATIVE (NEGATIVE); UGLUCOSE NEGATIVE (NEGATIVE); UROBILINOGEN,URINE 0.2 EU/dL (0.2 - 1)
[2024-03-12 21:16] LABS: APPEARANCE,URINE SLIGHTLY HAZY (CLEAR)
[2024-03-12 21:23] LABS: BACTERIA,URINE 3+ /HPF (None Seen); MUCUS,URINE 3+ /LPF (None Seen); WBC,URINE 16-25 (MOD) /HPF (0-5); YEAST,URINE Rare /HPF (None Seen)
[2024-03-12] MEDS ORDERED: NITR100C7 PO (22:00)
[2024-03-12] MEDS: NITROFURANTOIN 100 MG CAP PO ONE (22:10)
[2024-03-12 22:25] VITALS: BP 152/76; PULSE 66; RESP 19; TEMP 98; O2SAT 98
== END 2024-03-12 22:25 | disposition home or self-care (01) ==
LOC: MED 20:19
DX: N39.0 Urinary tract infection, site not specified (principal); N81.89 Other female genital prolapse; N95.0 Postmenopausal bleeding; R03.0 Elevated blood-pressure reading, without diagnosis of hypertension; E11.9 Type 2 diabetes mellitus without complications; I10 Essential (primary) hypertension; Z79.899 Other long term (current) drug therapy; Z79.82 Long term (current) use of aspirin
CPT/HCPCS: 81001; 87086; 87186; 99283